=== PATIENT | female | born 1935 | race Caucasian/White ===

== ENCOUNTER 2020-01-08 08:52 | Inpatient (IN) | payer MEDICARE ==
[2020-01-08] MEDS ORDERED: Fentanyl 100 MCG/2 ML VIAL ONE ×3 (09:17→12:50)
[2020-01-08] MEDS ORDERED: PROPOFOL 200 MG/20 ML VIAL ONE (09:41)
[2020-01-08] MEDS ORDERED: Ondansetron PF 4 MG/2 ML Vial ONE (09:41)
--- NOTE | 2020-01-08 09:50 | CT ---
CT BRAIN WITHOUT CONTRAST: HISTORY:Fall, unknown loss of consciousness FINDINGS: There are foci of decreased attenuation in the periventricular white matter, consistent with chronic small vessel ischemic disease. There are changes of cortical atrophy. No evidence of acute infarct, hemorrhage, midline shift or abnormal extra-axial fluid collections is seen. The ventricular size is appropriate and the basilar cisterns are patent. The bony calvarium is intact. There is mild mucosal disease in the paranasal sinuses. IMPRESSION: No CT evidence of acute intracranial process.
[2020-01-08 09:51] LABS: #Eosinphils 0.1 thou/uL (0.0-0.7); #Lymphocytes 1.4 thou/uL (1.20-3.40); #Monocytes 0.3 thou/uL (0.11-0.59); #Neutrophils 6.4 thou/uL (1.40-6.50); %Basophils 0.4 % (0.0-1.0); %Eosinophils 1.4 % (0.0-10.0); %Lymphocytes 17.4 % (21.0-51.0); %Monocytes 3.7 % (0.0-10.0); %Neutrophils 77.2 % (42.0-75.0); Hemoglobin 9.8 g/dL (12.0-16.0); Mean Corpuscular HGB CONC 32.4 g/dL (32.0-36.0); Mean Corpuscular Hemoglobin 31.9 pg (27.0-31.0); Mean Corpuscular Volume 98.4 fL (78.0-98.0); Mean Platelet Volume 7.5 fL (7.4-10.4); Platelet Count 399 thou/uL (130-400); RBC Distribution Width 12.3 % (11.5-14.5); Red Blood Cell (RBC) Count 3.07 mill/uL (4.20-5.40); White Blood Cell (WBC) Count 8.3 thou/uL (4.8-10.8)
--- NOTE | 2020-01-08 09:55 | CT ---
CT CERVICAL SPINE WITH CORONAL AND SAGITTAL REFORMATIONS AND NO IV CONTRAST: HISTORY: Fall, neck pain FINDINGS: Multilevel degenerative changes are present. No fracture, subluxation or facet malalignment is identified. No prevertebral soft tissue swelling is apparent. The visualized lung apices show no evidence of pneumothorax. IMPRESSION: No CT evidence for fracture or traumatic subluxation.
[2020-01-08 10:05] LABS: ALT (SGPT) 15 U/L (8-55); AST (SGOT) 19 U/L (5-34); Albumin 3.7 g/dL (3.4-4.8); Alkaline Phosphatase 94 U/L (40-110); Anion Gap 17 mmol/L (10-20); BUN (Urea Nitrogen) 34 mg/dL (9.8-20.1); Bilirubin, Total 0.4 mg/dL (0.2-1.2); CK (CPK) 61 U/L (29-168); Calc. Creatinine Clearance 0 mL/min (70-130); Carbon Dioxide 21 mmol/L (23-31); Chloride 106 mmol/L (98-107); Estimated GFR-MDRD 25; Globulin 2.9 g/dL (2.4-3.5); Glucose 216 mg/dL (83-110); Protein, Total 6.6 g/dL (6.0-8.3); Sodium 139 mmol/L (136-145)
--- NOTE | 2020-01-08 10:16 | RAD ---
SINGLE VIEW LEFT HIP: Date: 01/08/2020 COMPARISON: None. HISTORY: Fall with left hip pain. FINDINGS: Single view of the left hip shows a fracture of the left femoral neck. No dislocation of the femoral head is seen. Mild surrounding soft tissue swelling is seen. IMPRESSION: Left femoral neck fracture. POS: C
--- NOTE | 2020-01-08 10:22 | RAD ---
AP PELVIS 1 VIEW: Date: 01/08/2020 HISTORY: Injury from a fall. FINDINGS: Displaced subcapital left femoral neck fracture. Bony demineralization. Postop changes in the right p herb. IMPRESSION: Displaced subcapital left femoral neck fracture. Bony demineralization. POS: [facility]
--- NOTE | 2020-01-08 10:24 | RAD ---
CHEST 1 VIEW: Date: 01/08/2020 HISTORY: Patient is status post fall. COMPARISON: Chest x-ray of 12/31/2019. FINDINGS: Heart size is borderline enlarged considering the portable technique. There are postop sternotomy nba nges. Persistent right basilar infiltrate is seen. Slightly more prominent parenchymal lung changes i n the right mid lung field. I am not certain how much of this is just related to rotation. I do not a ppreciate any rib fractures or pneumothorax. No pleural effusion. IMPRESSION: 1. Chronic lung change. 2. Right basilar infiltrate with suggestion of some increasing parenchymal changes in the right mid lung field which may indicate worsening of the right-sided infiltrate. POS: [facility]
[2020-01-08 10:27] LABS: CKMB 1.6 ng/mL (0-6.6)
[2020-01-08 10:38] LABS: Bacteria/HPF None Seen HPF (None Seen); Bilirubin Negative (Negative); Blood, Urine Negative (Negative); Clarity Clear (Clear); Glucose, Urine (Dipstick) 30 mg/dL (Negative); Leukocyte Negative Leu/uL (Negative); Nitrite Negative (Negative); Protein, Urine (Dipstick) 100 mg/dL (Neg-Trace); RBC/HPF 0-3 HPF (0-3); Squamous Epithelial 0-3 HPF (0-3); Urobilinogen Normal mg/dL (Less than 2); WBC/HPF None Seen HPF (0-3)
[2020-01-08 10:38] LABS: INR-International Normal Ratio 1.1; PTT 26.5 SEC (22.9-36.1); Prothrombin Time 14.6 SEC (12.0-14.7)
[2020-01-08] MEDS ORDERED: Morphine 4 MG/ML VIAL ONE (10:49)
[2020-01-08] MEDS ORDERED: Phenylephrine 10 MG/ML VIAL ONE (12:46)
[2020-01-08] MEDS ORDERED: Clindamycin/D5W 900 mg/50 ml Premix Bag ONE (12:52)
[2020-01-08 13:10] LABS: Troponin I 0.031 ng/mL (< 0.028)
[2020-01-08] MEDS ORDERED: Promethazine HCl 25 MG/ML VIAL SLOW IVP PRN (14:18)
[2020-01-08] MEDS ORDERED: Promethazine HCl 25 MG/ML VIAL IM PRN (14:18)
--- NOTE | 2020-01-08 14:56 | RAD ---
XR Pelvis AP STANDARD HISTORY: Status post hemiarthroplasty left hip FINDINGS: Interval postoperative changes of left hip arthroplasty are seen since earlier exam of 10:48 AM from the same date
--- NOTE | 2020-01-08 14:57 | RAD ---
XR Hip Lt 1 View HISTORY: Left hip hemiarthroplasty FINDINGS: Interval postoperative changes of left hip arthroplasty are seen since earlier exam of 10:48 AM from the same date
[2020-01-08] MEDS ORDERED: hydrALAZINE 20 MG/ML VIAL ONE (15:14)
[2020-01-08] MEDS ORDERED: Promethazine HCl 25 MG/ML VIAL ONE (16:46)
[2020-01-08] MEDS ORDERED: Dextrose 5% in Water 1,000 ML IV PRN (19:30)
[2020-01-08] MEDS ORDERED: Morphine 2 MG/ML SYRINGE SLOW IVP PRN (19:30)
[2020-01-08] MEDS ORDERED: Sodium Chloride 0.9% 1,000 ML IV SCH (19:30)
[2020-01-08] MEDS ORDERED: Dextrose 50% Abboject 50 ML SYRINGE SLOW IVP PRN (19:30)
[2020-01-08] MEDS ORDERED: Ondansetron ODT 4 MG TAB PO PRN (19:30)
[2020-01-08] MEDS ORDERED: traMADol HCl 50 MG TAB PO PRN ×2 (19:35)
[2020-01-08 20:07] LABS: Hemoglobin 9.4 g/dL (12.0-16.0); Platelet Count 300 thou/uL (130-400)
--- NOTE | 2020-01-08 20:07 | OP ---
DATE OF PROCEDURE: 01/08/2020 PROCEDURE PERFORMED: Left hip hemiarthroplasty, bipolar. PREOPERATIVE DIAGNOSIS: Left femoral neck fracture. POSTOPERATIVE DIAGNOSIS: Left femoral neck fracture. COMPLICATIONS: None. ESTIMATED BLOOD LOSS: 100 mL. [employer]: Shine Treviño PA-C IMPLANTS: Synthes basic press-fit stem size 7, size 46 mm bipolar shell with a +5 femoral head. INDICATIONS: Ms. Briseno is an 84-year-old female, who has fallen and fractured the left hip. She has been indicated for hemiarthroplasty of the hip to restore function and promote mobilization. Risks have been reviewed in detail. She elected to proceed with the operation. DESCRIPTION OF PROCEDURE: Ms. Briseno was identified in the preoperative holding area. Her correct extremity was marked. She was carried to the operating room. She was positioned supine. A spinal anesthetic was placed. Intravenous antibiotics were administered. The left lower extremity was prepped and draped in sterile fashion. We began the procedure with posterior approach to the hip. We dissected down through the subcutaneous tissues to the fascia, which was opened. We then exposed the underlying short external rotators of the hip, which were subperiosteally divided from the proximal femur. At this point, we performed a capsulotomy. We then removed the broken femoral head and neck fragments. We performed a new osteotomy of the femoral neck with an oscillating saw. Next, at this point, we prepared the femoral canal. A box osteotomy was used to open the canal followed by a canal finder and appropriate reamers. We reamed up to a size 7. We then broached from a size 2 up to a size 7. We trialed off this broach. A +5 was appropriate for length and stability. We then removed our trial components and placed our final components. Again, length and stability were tested. We thoroughly irrigated and closed appropriately in layers. The short external rotators and capsule were repaired with #5 Ethibond suture through drill holes. A #2 Vicryl was used for fascia. A sterile dressing was applied. The patient was taken to the recovery room at this point in good condition without complication. Job ID: [id number]
[2020-01-08] MEDS: hydrALAZINE 20 MG/ML VIAL SLOW IVP PRN (20:18)
[2020-01-08] MEDS: Cyclobenzaprine 10 MG TAB PO PRN (20:20)
[2020-01-08] MEDS: Acetaminophen 325 MG TAB PO SCH (20:20)
[2020-01-08 20:25] LABS: Troponin I 0.042 ng/mL (< 0.028)
[2020-01-08] MEDS ORDERED: Famotidine 20 MG TAB PO SCH (21:00)
[2020-01-08] MEDS: CEFAZOLIN 2 GM in Premix Bag 1 BAG IVPB SCH (21:39)
[2020-01-08] MEDS: Ondansetron PF 4 MG/2 ML Vial IVP PRN (21:39)
[2020-01-08 22:14] VITALS: BMI 22.6
--- NOTE | 2020-01-08 23:50 | HP ---
This is Jai Xiong PA-C dictating a report for [place] Elizabeth Pate DO. REQUESTING PHYSICIAN: Dr. Putnam. ATTENDING SURGEON: Dr. Pate. CONSULTATIONS: Orthopedics, Dr. Drummond. HISTORY OF PRESENT ILLNESS: The patient is an 84-year-old woman who resides at a longterm who was found on the ground this morning, have been down for an unknown amount of time. Staff at [facility] found her and notified EMS where she was brought to the emergency department, where she underwent evaluation and examination and was noted to have a left femoral neck fracture. She also had indeterminate troponins x2 with no EKG changes. CT of her brain and C-spine were unremarkable. We were asked to evaluate the patient for admission and obtain Orthopedic consultation. ALLERGIES: IODINATED CONTRAST MEDIA. CURRENT MEDICATIONS: Floranex, iron tablets, guaifenesin, insulin, propranolol, Norvasc, baby aspirin, atorvastatin, Aricept, Lasix, isosorbide, metoprolol, and sertraline. PAST MEDICAL HISTORY: Type 2 diabetes, dementia, hyperlipidemia, hypertension, chronic kidney disease, anxiety, and depression. PAST SURGICAL HISTORY: Unknown. SOCIAL HISTORY: The patient resides at [facility]. There is no reported history of drug, tobacco, or alcohol use. REVIEW OF SYSTEMS: 10-point review of systems is negative unless otherwise stated. PHYSICAL EXAMINATION: VITAL SIGNS: Blood pressure 188/66, heart rate 66, respirations 13, oxygen saturation 100% on 2 L via nasal cannula, and temperature 97.5. GENERAL: The patient is currently on the telemetry floor. She is immediately postop from her orthopedic procedure. Her Sea Coma Scale is 14, 1 for confusion which is likely her baseline due to her dementia. HEENT: Head is normocephalic and atraumatic. Eyes, extraocular motions intact. PERRLA bilaterally. Ears are atraumatic without discharge. Nose is atraumatic without discharge. Oropharynx is clear. NECK: Nontender. There is no JVD. LUNGS: Have scant bilateral wheezing. This improved when I encouraged the patient to take a deep breath. HEART: Regular rate and rhythm. ABDOMEN: Soft, nontender with active bowel sounds. EXTREMITIES: Neurovascularly intact x4. Postop dressing is clean, dry, and intact. LABORATORY FINDINGS: White blood cell count 8.3, hemoglobin 9.9, hematocrit 30.2, platelets 399. Sodium 139, potassium 5.0, chloride 106, CO2 of 21, BUN 34, creatinine 1.89, glucose 216. LFTs are unremarkable. CK-MB 1.6. Troponin 0.030 and 0.031 at repeat. PT 15, INR 1.1, PTT 27. Urinalysis is unremarkable with the exception of positive protein. RADIOGRAPHIC EXAMINATION: CT of the brain without contrast, there is no CT evidence of acute intracranial process. CT of the C-spine without contrast shows no evidence of fracture or traumatic subluxation. AP chest x-ray shows chronic lung changes to include a persistent right basilar infiltrate. AP pelvis shows a displaced subcapital left femoral neck fracture. Views of the left hip again demonstrate the left femoral neck fracture. ASSESSMENT: 1. Status post ground level fall. 2. Left femoral neck fracture. 3. History of dementia, hyperlipidemia, hypertension, type 2 diabetes, chronic kidney disease. 4. History of anxiety and depression. PLAN: The patient is status post left hip hemiarthroplasty. Once the patient is awake enough, we will begin a diet, change her medications to oral route. Tomorrow, begin physical and occupational therapy and discuss timing to return to her facility. The evaluation, examination, laboratory, and radiographic findings were discussed with Dr. Pate this afternoon by the day team. Job ID: [id number]
[2020-01-09] MEDS: Acetaminophen 325 MG TAB PO SCH ×4 (02:31→20:10)
[2020-01-09] MEDS: hydrALAZINE 20 MG/ML VIAL SLOW IVP PRN ×3 (03:42→23:29)
[2020-01-09 04:40] LABS: #Lymphocytes 0.9 thou/uL (1.20-3.40); #Monocytes 0.4 thou/uL (0.11-0.59); %Basophils 0.2 % (0.0-1.0); %Eosinophils 0.2 % (0.0-10.0); %Lymphocytes 6.2 % (21.0-51.0); %Monocytes 3.1 % (0.0-10.0); %Neutrophils 90.3 % (42.0-75.0); Mean Corpuscular HGB CONC 32.7 g/dL (32.0-36.0); Mean Corpuscular Hemoglobin 32.8 pg (27.0-31.0); Mean Platelet Volume 7.6 fL (7.4-10.4); Platelet Count 302 thou/uL (130-400); RBC Distribution Width 12.5 % (11.5-14.5); Red Blood Cell (RBC) Count 2.76 mill/uL (4.20-5.40); White Blood Cell (WBC) Count 14.4 thou/uL (4.8-10.8)
[2020-01-09 05:22] LABS: Phosphorus 4.3 mg/dL (2.3-4.7)
[2020-01-09 05:24] LABS: Anion Gap 17 mmol/L (10-20); BUN (Urea Nitrogen) 32 mg/dL (9.8-20.1); Calc. Creatinine Clearance 10 mL/min (70-130); Calcium 8.1 mg/dL (7.8-10.44); Carbon Dioxide 18 mmol/L (23-31); Chloride 109 mmol/L (98-107); Estimated GFR-MDRD 25; Glucose 251 mg/dL (83-110); Magnesium 1.5 mg/dL (1.6-2.6); Potassium 4.7 mmol/L (3.5-5.1); Sodium 139 mmol/L (136-145)
[2020-01-09] MEDS ORDERED: Magnesium Sulfate 3 GM in Sodium Chloride 0.9% 250 ML 250 ML IVPB SCH (07:15)
[2020-01-09 07:43] LABS: Troponin I 0.037 ng/mL (< 0.028)
[2020-01-09] MEDS ORDERED: traMADol HCl 50 MG TAB PO PRN ×2 (08:15)
[2020-01-09] MEDS: Polyethylene Glycol 3350 17 GM Packet PO SCH (08:26)
[2020-01-09] MEDS: Amlodipine 10 MG TAB PO SCH (08:28)
[2020-01-09] MEDS: Aspirin 81 mg Enteric Coated Tablet PO SCH (08:28)
[2020-01-09] MEDS: Atorvastatin Calcium 20 MG TAB PO SCH (08:28)
[2020-01-09] MEDS: Furosemide 20 MG TAB PO SCH (08:29)
[2020-01-09] MEDS: Senokot S 8.6-50 MG TAB PO SCH ×2 (08:29→20:10)
[2020-01-09] MEDS: Isosorbide Dinitrate 20 MG TAB PO SCH (08:29)
[2020-01-09] MEDS: HumaLOG 300 UNITS/3 ML VIAL SC SCH ×2 (08:31→17:12)
[2020-01-09] MEDS: Ondansetron PF 4 MG/2 ML Vial IVP PRN (08:33)
[2020-01-09] MEDS: Sodium Chloride 0.9% 1,000 ML IV SCH ×2 (08:33→15:17)
[2020-01-09] MEDS: Heparin 5,000 UNITS/ML VIAL SC SCH ×2 (08:39→20:11)
[2020-01-09] MEDS: CEFAZOLIN 2 GM in Premix Bag 1 BAG IVPB SCH (08:59)
[2020-01-09] MEDS ORDERED: Aspirin 81 mg Enteric Coated Tablet PO SCH ×2 (09:00)
[2020-01-09] MEDS ORDERED: Scopolamine 1.5 mg/72 hour Patch TD SCH (09:15)
[2020-01-09] MEDS: traMADol HCl 50 MG TAB PO SCH ×2 (09:38→20:10)
[2020-01-09] MEDS: Gabapentin 100 MG CAP PO SCH ×2 (09:51→20:10)
[2020-01-09] MEDS ORDERED: Magnesium Oxide 400 MG TAB PO SCH (10:30)
[2020-01-09] MEDS: HumaLOG 300 UNITS/3 ML VIAL SC PRN ×3 (11:12→21:51)
--- NOTE | 2020-01-09 14:20 | PRG ---
DATE OF SERVICE: 01/09/2020 This is Nayan Munoz PA-C dictating a report for Dr. Pate. SUBJECTIVE: Ms. Briseno is an 84-year-old female, status post ground level fall. She sustained left hip fracture. She underwent ORIF of left hip fracture, postop day 1. She also has a history of diabetes, coronary artery disease with 3-bypass, chronic kidney disease, hypertension, dementia. The patient tolerated the procedure well. Postop, the patient reports pain of the left hip is well controlled. She developed no fever or shortness of breath. She tolerated her regular diet and she makes appropriate urine for age and weight. She has not yet had bowel. The patient denies IV access this morning for magnesium IV. Her magnesium replacement will be on p.o. route. OBJECTIVE: GENERAL: Currently, the patient is lying in bed comfortable with no acute respiratory distress. She is alert and awake. GCS 15. VITAL SIGNS: Temperature 98.9, heart rate 56, respiratory rate 16, O2 saturation 98 on 2 L, and blood pressure 160/53. LUNGS: Clear bilaterally. HEART: Regular rate and rhythm. ABDOMEN: Soft and nondistended. EXTREMITIES: Neurovascularly intact x4. Postop dressing is clean, dry, intact. NEUROLOGIC: No focal neurologic deficits. ASSESSMENT: 1. Status post ground level fall. 2. Left hip fracture, status post open reduction and internal fixation of left hip fracture. 3. History of diabetes, type 2; hypertension; coronary artery disease with coronary artery bypass grafting (3-bypass); chronic kidney disease, dementia; depression. PLAN: Continue supportive care. Continue pain control. Continue DVT prophylaxis with unfractionated heparin subcu. Encourage working with Physical Therapy and Occupational Therapy. Anticipate placement of the patient in jail facility in [place]. The patient was seen and evaluated with Dr. Pate on round this morning. Job ID: [id number]
[2020-01-09] MEDS ORDERED: Morphine 2 MG/ML SYRINGE SLOW IVP PRN (16:39)
[2020-01-09] MEDS: Cyclobenzaprine 10 MG TAB PO PRN (18:13)
[2020-01-09] MEDS: Donepezil HCl 10 MG TAB PO SCH (20:11)
--- NOTE | 2020-01-10 01:00 | PRG ---
DATE OF SERVICE: 01/10/2020 SUBJECTIVE: The patient is currently on the surgical floor. She is status post ground level fall, in which, she sustained a left hip fracture yesterday. She underwent open reduction and internal fixation, which she tolerated well and she began working with Physical and Occupational Therapy today. She was able to stand by the bed and take 3 steps. She reports that her pain is controlled. She is tolerating a diet. PHYSICAL EXAMINATION: VITAL SIGNS: Stable. The patient remains hypertensive. Her home medications have been resumed. She also has p.r.n. hydralazine. GENERAL: The patient is resting comfortably in bed. She is awake, conversant, and appropriate. LUNGS: Clear to auscultation bilaterally. HEART: Regular rate and rhythm. ABDOMEN: Soft, nondistended with active bowel sounds. EXTREMITIES: Neurovascularly intact x4. Postop dressing is clean, dry, and intact. ASSESSMENT: 1. Status post ground level fall. 2. Status post left hip hemiarthroplasty. 3. History of diabetes, hypertension, coronary artery disease, chronic kidney disease, dementia, and depression. PLAN: Plan will be to continue supportive care. Encourage Physical and Occupational Therapy and await placement decision. Job ID: [id number]
[2020-01-10] MEDS: Acetaminophen 325 MG TAB PO SCH ×4 (02:20→20:06)
[2020-01-10 05:46] LABS: #Basophils 0.1 thou/uL (0.0-0.2); #Eosinphils 0.3 thou/uL (0.0-0.7); #Lymphocytes 1.2 thou/uL (1.20-3.40); #Monocytes 0.5 thou/uL (0.11-0.59); #Neutrophils 10.4 thou/uL (1.40-6.50); %Basophils 0.6 % (0.0-1.0); %Eosinophils 2.3 % (0.0-10.0); %Lymphocytes 9.8 % (21.0-51.0); %Monocytes 4.3 % (0.0-10.0); %Neutrophils 83.1 % (42.0-75.0); Hemoglobin 8.3 g/dL (12.0-16.0); Mean Corpuscular HGB CONC 32.2 g/dL (32.0-36.0); Mean Corpuscular Hemoglobin 32.6 pg (27.0-31.0); Mean Platelet Volume 7.4 fL (7.4-10.4); Platelet Count 279 thou/uL (130-400); RBC Distribution Width 12.7 % (11.5-14.5); Red Blood Cell (RBC) Count 2.55 mill/uL (4.20-5.40); White Blood Cell (WBC) Count 12.5 thou/uL (4.8-10.8)
[2020-01-10] MEDS: HumaLOG 300 UNITS/3 ML VIAL SC PRN ×3 (06:01→20:03)
[2020-01-10 06:07] LABS: Anion Gap 15 mmol/L (10-20); BUN (Urea Nitrogen) 38 mg/dL (9.8-20.1); Calc. Creatinine Clearance 8 mL/min (70-130); Calcium 8.3 mg/dL (7.8-10.44); Carbon Dioxide 19 mmol/L (23-31); Chloride 107 mmol/L (98-107); Estimated GFR-MDRD 21; Glucose 221 mg/dL (83-110); Magnesium 1.6 mg/dL (1.6-2.6); Phosphorus 3.9 mg/dL (2.3-4.7); Potassium 4.7 mmol/L (3.5-5.1); Sodium 136 mmol/L (136-145)
[2020-01-10] MEDS ORDERED: Magnesium 2 GM/50 ML 2 GM in Premix Bag 1 BAG IVPB SCH (08:00)
[2020-01-10] MEDS: Polyethylene Glycol 3350 17 GM Packet PO SCH (08:08)
[2020-01-10] MEDS: Senokot S 8.6-50 MG TAB PO SCH ×2 (08:09→20:06)
[2020-01-10] MEDS: Aspirin 81 mg Enteric Coated Tablet PO SCH (08:09)
[2020-01-10] MEDS: Gabapentin 100 MG CAP PO SCH ×2 (08:10→20:06)
[2020-01-10] MEDS: Atorvastatin Calcium 20 MG TAB PO SCH (08:10)
[2020-01-10] MEDS: Furosemide 20 MG TAB PO SCH (08:11)
[2020-01-10] MEDS: Amlodipine 10 MG TAB PO SCH (08:12)
[2020-01-10] MEDS: Isosorbide Dinitrate 20 MG TAB PO SCH (08:12)
[2020-01-10] MEDS: traMADol HCl 50 MG TAB PO SCH ×2 (08:14→20:05)
[2020-01-10] MEDS: Heparin 5,000 UNITS/ML VIAL SC SCH ×2 (08:14→20:03)
[2020-01-10] MEDS: HumaLOG 300 UNITS/3 ML VIAL SC SCH ×2 (08:22→16:48)
[2020-01-10] MEDS: Sodium Chloride 0.9% 500 ML IV SCH ×2 (08:55→13:18)
[2020-01-10] MEDS: Sodium Chloride 0.9% 1,000 ML IV SCH (08:55)
[2020-01-10 13:24] LABS: Anion Gap 14 mmol/L (10-20); BUN (Urea Nitrogen) 40 mg/dL (9.8-20.1); Calc. Creatinine Clearance 8 mL/min (70-130); Calcium 8.2 mg/dL (7.8-10.44); Carbon Dioxide 19 mmol/L (23-31); Chloride 106 mmol/L (98-107); Estimated GFR-MDRD 21; Glucose 268 mg/dL (83-110); Magnesium 1.6 mg/dL (1.6-2.6); Potassium 4.5 mmol/L (3.5-5.1); Sodium 134 mmol/L (136-145)
--- NOTE | 2020-01-10 17:02 | PRG ---
DATE OF SERVICE: 01/10/2020 SUBJECTIVE: Ms. Briseno is an 84-year-old female, status post ground level fall. She sustained left hip fracture. She underwent ORIF of left hip fracture. Postop day 2, the patient reports pain is well controlled. She is able to work with Physical Therapy, Occupational Therapy. She tolerated her regular diet; however, patient refused IV fluid. This morning, the patient's kidney function got worse. Her magnesium is not improved with p.o. replacement. OBJECTIVE: GENERAL: The patient lying in bed, comfortable with no acute respiratory distress. VITAL SIGNS: Temperature 98.1, heart rate 57, respiratory rate 16, O2 saturation 94% on room air, blood pressure 171/61. LUNGS: Clear bilaterally. HEART: Regular rate and rhythm. ABDOMEN: Soft, nondistended. EXTREMITIES: Neurovascularly intact x4. Postop dressings clean, dry, intact. NEUROLOGY: No focal neurology deficits. ASSESSMENT: 1. Status post ground level fall. 2. Left hip fracture, status post open reduction internal fixation of left hip fracture postop day 2. 3. Hypomagnesium. 4. Acute kidney injury on chronic kidney injury. 5. History of diabetes type 2. 6. Hypertension. 7. Coronary artery disease with coronary artery bypass grafting, 3-bypass. 8. Dementia. 9. Depression. PLAN: We will try IV fluids today and replace the magnesium IV. Continue pain control. Continue DVT prophylaxis. Continue working with Physical Therapy and Occupational Therapy. Anticipate placement going back to acute facility tomorrow. The patient was seen and evaluated by Dr. Pate on rounds this morning. Job ID: [id number]
[2020-01-10] MEDS: Donepezil HCl 10 MG TAB PO SCH (20:06)
--- NOTE | 2020-01-11 00:07 | PRG ---
DATE OF SERVICE: 01/10/2020 SUBJECTIVE: The patient is currently on the surgical floor. She is status post left hip hemiarthroplasty. She is postop day 2 from that procedure. She has been working with Physical and Occupational Therapy. She is tolerating a diet. Her pain is controlled. She is awaiting placement. PHYSICAL EXAMINATION: VITAL SIGNS: Stable. Patient remains hypertensive, though it is improving. She has been restarted on her home medications. GENERAL: The patient is resting comfortably in bed. She is awake, alert, conversant, and appropriate. LUNGS: Clear to auscultation bilaterally. HEART: Regular rate and rhythm. ABDOMEN: Soft, nondistended with active bowel sounds. EXTREMITIES: Neurovascularly intact x4. Postop dressing is clean, dry, and intact. ASSESSMENT AND PLAN: 1. Status post ground level fall. 2. Status post left hip hemiarthroplasty, postop day 2. 3. History of diabetes, hypertension, coronary artery disease, chronic kidney disease, dementia, and depression. Plan will be to continue supportive care. She continues to have gentle IV hydration. We will recheck her labs in the morning. Encourage physical and occupational therapy and await final placement decision. Job ID: [id number]
[2020-01-11] MEDS: Acetaminophen 325 MG TAB PO SCH ×2 (02:07→09:12)
[2020-01-11 03:37] VITALS: TEMP 98.7
[2020-01-11] MEDS: HumaLOG 300 UNITS/3 ML VIAL SC PRN ×2 (05:39→12:14)
[2020-01-11 06:07] LABS: Anion Gap 14 mmol/L (10-20); BUN (Urea Nitrogen) 40 mg/dL (9.8-20.1); Calc. Creatinine Clearance 9 mL/min (70-130); Calcium 8.4 mg/dL (7.8-10.44); Carbon Dioxide 19 mmol/L (23-31); Chloride 104 mmol/L (98-107); Estimated GFR-MDRD 24; Glucose 264 mg/dL (83-110); Magnesium 2.1 mg/dL (1.6-2.6); Phosphorus 3.5 mg/dL (2.3-4.7); Potassium 4.5 mmol/L (3.5-5.1); Sodium 132 mmol/L (136-145)
[2020-01-11] MEDS: Sodium Chloride 0.9% 1,000 ML IV SCH (06:24)
[2020-01-11] MEDS: Senokot S 8.6-50 MG TAB PO SCH (09:12)
[2020-01-11] MEDS: Atorvastatin Calcium 20 MG TAB PO SCH (09:12)
[2020-01-11] MEDS: Gabapentin 100 MG CAP PO SCH (09:13)
[2020-01-11] MEDS: Aspirin 81 mg Enteric Coated Tablet PO SCH (09:13)
[2020-01-11] MEDS: Amlodipine 10 MG TAB PO SCH (09:13)
[2020-01-11] MEDS: Furosemide 20 MG TAB PO SCH (09:13)
[2020-01-11] MEDS: Isosorbide Dinitrate 20 MG TAB PO SCH (09:13)
[2020-01-11] MEDS: traMADol HCl 50 MG TAB PO SCH (09:14)
[2020-01-11] MEDS: Heparin 5,000 UNITS/ML VIAL SC SCH (09:15)
[2020-01-11] MEDS: HumaLOG 300 UNITS/3 ML VIAL SC SCH (09:15)
--- NOTE | 2020-01-11 11:29 | EKG ---
Test Reason : Blood Pressure : / mmHG Vent. Rate : 070 BPM Atrial Rate : 070 BPM P-R Int : 150 ms QRS Dur : 122 ms QT Int : 458 ms P-R-T Axes : 040 073 035 degrees QTc Int : 494 ms Sinus rhythm with marked sinus arrhythmia Right bundle branch block Abnormal ECG Confirmed by RADHA AYALA DO ([id number]), manager editorial GERRY HANSEN ([id number]) on 01/11/2020 11:28:48 AM Referred By: Confirmed By:RADHA AYALA DO
[2020-01-11] MEDS: hydrALAZINE 20 MG/ML VIAL SLOW IVP PRN (12:13)
[2020-01-11 13:05] VITALS: BP 189/52
== END 2020-01-11 13:28 | DRG 470 ==
LOC: ERS 08:52 → 2NO 12:03 → ERS 12:03 → SDC 12:10 → 2NO 14:21 → SURG A 01-09 11:32
PROVIDERS: ADMIT Surgery; ATTEND Surgery
PROC: 0SRS0JA Replacement of Left Hip Joint, Femoral Surface with Synthetic Substitute, Uncemented, Open Approach (ICD-10-PCS; principal; 2020-01-08)
DX: S72.002A Fracture of unspecified part of neck of left femur, initial encounter for closed fracture (principal); N17.9 Acute kidney failure, unspecified; E78.5 Hyperlipidemia, unspecified; F03.90 Unspecified dementia, unspecified severity, without behavioral disturbance, psychotic disturbance, mood disturbance, and anxiety; E03.9 Hypothyroidism, unspecified; W18.39XA Other fall on same level, initial encounter; E11.22 Type 2 diabetes mellitus with diabetic chronic kidney disease; I12.9 Hypertensive chronic kidney disease with stage 1 through stage 4 chronic kidney disease, or unspecified chronic kidney disease; N18.9 Chronic kidney disease, unspecified; F41.9 Anxiety disorder, unspecified; F32.9 Major depressive disorder, single episode, unspecified; I25.10 Atherosclerotic heart disease of native coronary artery without angina pectoris; Z91.041 Radiographic dye allergy status; Z95.1 Presence of aortocoronary bypass graft
CPT/HCPCS: 36415; 36416; 70450; 71045; 72125; 72170; 80048; 80053; 81003; 81015; 82550; 82553; 83735; 84100; 84484; 85025; 85610; 85730; 86850; 86900; 86901; 93005; 96365; 96375; G0390; J0360; J0690; J1644; J1956; J2270; J2370; J2405; J2550; J2704; J3010; J3475; J3490; J7050

== ENCOUNTER 2021-06-14 13:02 | Inpatient (IN) | payer MEDICARE, OTHER ==
[~2021-06-14 13:02] MED LIST: Iopamidol 370 76% 100 ML VIAL ONE
[2021-06-14 13:56] LABS: #Basophils 0.1 thou/uL (0.0-0.2); #Eosinphils 0.1 thou/uL (0.0-0.7); #Lymphocytes 0.9 thou/uL (1.20-3.40); #Monocytes 0.5 thou/uL (0.11-0.59); #Neutrophils 7.9 thou/uL (1.40-6.50); %Basophils 0.7 % (0.0-1.0); %Eosinophils 0.5 % (0.0-10.0); %Lymphocytes 9.5 % (21.0-51.0); %Monocytes 5.4 % (0.0-10.0); %Neutrophils 83.9 % (42.0-75.0); Hemoglobin 11.1 g/dL (12.0-16.0); Mean Corpuscular HGB CONC 33.7 g/dL (32.0-36.0); Mean Corpuscular Hemoglobin 34.3 pg (27.0-31.0); Mean Platelet Volume 7.7 fL (7.4-10.4); Platelet Count 182 thou/uL (130-400); RBC Distribution Width 12.8 % (11.5-14.5); Red Blood Cell (RBC) Count 3.24 mill/uL (4.20-5.40); White Blood Cell (WBC) Count 9.4 thou/uL (4.8-10.8)
[2021-06-14] MEDS ORDERED: Calcium Gluc 4.6 MEQ/10 ML (100 MG/ML) ONE (14:05)
[2021-06-14 14:15] LABS: ALT (SGPT) 48 U/L (8-55); AST (SGOT) 62 U/L (5-34); Albumin 3.8 g/dL (3.4-4.8); Alkaline Phosphatase 117 U/L (40-110); Anion Gap 15 mmol/L (10-20); BUN (Urea Nitrogen) 45 mg/dL (9.8-20.1); Bilirubin, Total 0.3 mg/dL (0.2-1.2); Calc. Creatinine Clearance 0 mL/min (70-130); Calcium 8.8 mg/dL (7.8-10.44); Carbon Dioxide 14 mmol/L (23-31); Chloride 114 mmol/L (98-107); Globulin 2.8 g/dL (2.4-3.5); Glucose 120 mg/dL (83-110); Potassium 5.3 mmol/L (3.5-5.1); Protein, Total 6.6 g/dL (5.8-8.1); Sodium 138 mmol/L (136-145)
[2021-06-14] MEDS ORDERED: Fentanyl 100 MCG/2 ML VIAL ONE (14:29)
[2021-06-14] MEDS ORDERED: Aspirin Chewable 81 MG TAB ONE (14:36)
[2021-06-14] MEDS ORDERED: Lidocaine 1% (PF) 30 ML VIAL ONE (14:39)
[2021-06-14] MEDS ORDERED: methylPREDNISolone Sod Succ/PF 125 MG/2 ML VIAL ONE (14:44)
[2021-06-14 14:57] LABS: CKMB 4.1 ng/mL (0-6.6)
[2021-06-14 15:20] LABS: INR-International Normal Ratio 1.1; PTT 24.5 sec (22.9-36.1); Prothrombin Time 14.2 sec (12.0-14.7)
[2021-06-14] MEDS ORDERED: Nitroglycerin 2% Ointment 1 INCH/1 GM Packet ONE (16:04)
[2021-06-14] MEDS ORDERED: Nitroglycerin 0.4 MG TAB (25 Tab Bottle) SL PRN (16:21)
[2021-06-14] MEDS ORDERED: Sodium Chloride 0.9% 200 ML IV PRN (16:21)
[2021-06-14] MEDS ORDERED: Acetaminophen/Codeine 30-300mg Tablet PO PRN ×2 (16:21)
[2021-06-14 16:29] LABS: SARS-CoV-2 NAA Rapid Test Not Detected (NotDetected)
[2021-06-14] MEDS ORDERED: Acetaminophen 325 MG TAB PO PRN (16:53)
[2021-06-14] MEDS ORDERED: Aspirin 81 mg Enteric Coated Tablet PO SCH (17:00)
[2021-06-14] MEDS ORDERED: Dextrose 50% Abboject 50 ML SYRINGE SLOW IVP PRN (17:18)
[2021-06-14] MEDS ORDERED: Insulin Regular 300 UNITS/3 ML VIAL SC PRN ×2 (17:18)
[2021-06-14] MEDS ORDERED: Dextrose 5% in Water 1,000 ML IV PRN (17:18)
[2021-06-14] MEDS ORDERED: Morphine 2 MG/ML VIAL SLOW IVP SCH (17:45)
[2021-06-14] MEDS ORDERED: Nitroglycerin 50 MG/250 ML BOT 250 ML ONE (17:48)
[2021-06-14] MEDS ORDERED: Clopidogrel Bisulfate 300 MG TAB PO SCH (17:48)
[2021-06-14] MEDS: Sodium Chloride 0.9% 1,000 ML IV SCH (18:22)
[2021-06-14] MEDS ORDERED: Nitroglycerin 50 MG/250 ML BOT 250 ML IVPB SCH (18:30)
[2021-06-14 18:51] VITALS: BMI 29.3
[2021-06-14 19:13] VITALS: TEMP 97.6
[2021-06-14] MEDS ORDERED: Morphine 2 MG/ML VIAL SLOW IVP PRN (19:34)
[2021-06-14] MEDS ORDERED: Heparin 10,000 UNITS/ 10 ML VIAL ONE (19:38)
[2021-06-14] MEDS ORDERED: DOPamine 400 MG/D5W 250 ML 250 ML ONE (19:38)
[2021-06-14] MEDS ORDERED: Heparin 10,000 UNITS/ 10 ML VIAL SLOW IVP SCH (19:45)
[2021-06-14] MEDS ORDERED: Heparin 25,000 units/D5W 500 ML IV SCH (19:45)
[2021-06-14] MEDS ORDERED: Nitroglycerin 2% Ointment 1 INCH/1 GM Packet TOP SCH (22:00)
[2021-06-14 22:25] LABS: Troponin I 1.416 ng/mL (< 0.028)
[2021-06-14 23:10] LABS: BUN (Urea Nitrogen) 49 mg/dL (9.8-20.1); Calc. Creatinine Clearance 19 mL/min (70-130); Chloride 111 mmol/L (98-107); Glucose 549 mg/dL (83-110); Potassium 6.3 mmol/L (3.5-5.1); Sodium 132 mmol/L (136-145)
[2021-06-14 23:19] LABS: Carbon Dioxide Less than 8 mmol/L (23-31)
[2021-06-14] MEDS ORDERED: Furosemide 40 MG/4 ML VIAL SLOW IVP SCH (23:30)
[2021-06-14 23:48] LABS: PTT 235.2 sec (22.9-36.1)
[2021-06-15] MEDS ORDERED: DOPamine 400 MG/D5W 250 ML 250 ML IVPB SCH (00:30)
[2021-06-15] MEDS ORDERED: Sodium Chloride 0.9% 500 ML IV SCH (01:00)
[2021-06-15] MEDS: Sodium Chloride 0.9% 1,000 ML IV SCH (04:41)
[2021-06-15] MEDS ORDERED: Aspirin 81 mg Enteric Coated Tablet PO SCH (09:00)
[2021-06-15] MEDS ORDERED: Clopidogrel Bisulfate 75 MG TAB PO SCH (09:00)
[2021-06-15] MEDS ORDERED: Clopidogrel Bisulfate 300 MG TAB PO SCH (09:00)
[2021-06-16] MEDS ORDERED: Clopidogrel Bisulfate 75 MG TAB PO SCH (09:00)
== END 2021-06-15 02:54 | disposition expired ==
LOC: ERS 13:02 → CCU 15:51
PROVIDERS: ADMIT Emergency Medicine; ATTEND Emergency Medicine
PROC: 4A023N7 Measurement of Cardiac Sampling and Pressure, Left Heart, Percutaneous Approach (ICD-10-PCS; principal; 2021-06-14)
PROC: B2111ZZ Fluoroscopy of Multiple Coronary Arteries using Low Osmolar Contrast (ICD-10-PCS; 2021-06-14)
PROC: B2181ZZ Fluoroscopy of Left Internal Mammary Bypass Graft using Low Osmolar Contrast (ICD-10-PCS; 2021-06-14)
PROC: B2131ZZ Fluoroscopy of Multiple Coronary Artery Bypass Grafts using Low Osmolar Contrast (ICD-10-PCS; 2021-06-14)
PROC: B2151ZZ Fluoroscopy of Left Heart using Low Osmolar Contrast (ICD-10-PCS; 2021-06-14)
PROC: 3E033XZ Introduction of Vasopressor into Peripheral Vein, Percutaneous Approach (ICD-10-PCS; 2021-06-14)
DX: I97.190 Other postprocedural cardiac functional disturbances following cardiac surgery (principal); I21.19 ST elevation (STEMI) myocardial infarction involving other coronary artery of inferior wall; T82.868A Thrombosis due to vascular prosthetic devices, implants and grafts, initial encounter; N18.4 Chronic kidney disease, stage 4 (severe); I25.810 Atherosclerosis of coronary artery bypass graft(s) without angina pectoris; E87.2 Acidosis; I13.0 Hypertensive heart and chronic kidney disease with heart failure and stage 1 through stage 4 chronic kidney disease, or unspecified chronic kidney disease; Z20.822 Contact with and (suspected) exposure to COVID-19; Z66 Do not resuscitate; E11.51 Type 2 diabetes mellitus with diabetic peripheral angiopathy without gangrene; E11.22 Type 2 diabetes mellitus with diabetic chronic kidney disease; I25.10 Atherosclerotic heart disease of native coronary artery without angina pectoris; I50.9 Heart failure, unspecified; F03.90 Unspecified dementia, unspecified severity, without behavioral disturbance, psychotic disturbance, mood disturbance, and anxiety; E78.5 Hyperlipidemia, unspecified; F41.9 Anxiety disorder, unspecified; F32.9 Major depressive disorder, single episode, unspecified; Y83.2 Surgical operation with anastomosis, bypass or graft as the cause of abnormal reaction of the patient, or of later complication, without mention of misadventure at the time of the procedure; I48.91 Unspecified atrial fibrillation; S00.83XA Contusion of other part of head, initial encounter; W01.0XXA Fall on same level from slipping, tripping and stumbling without subsequent striking against object, initial encounter; R00.1 Bradycardia, unspecified; Z91.041 Radiographic dye allergy status; Z79.899 Other long term (current) drug therapy; Z79.4 Long term (current) use of insulin
CPT/HCPCS: 36416; 70450; 71045; 72125; 76942; 80053; 82553; 84484; 85025; 85347; 85610; 85730; 93005; 93010; 93455; 94760; 96365; 96375; 96376; J1265; J1644; J1815; J1940; J2001; J2270; J2930; J3010; Q9967; U0002; U0005